=== PATIENT | male | born 1965 | race Caucasian/White ===

== ENCOUNTER 2017-07-12 19:31 | Emergency (ER) | payer OTHER ==
[~2017-07-12] VITALS: Ht 193 cm; Wt 116.4 kg
[2017-07-12 20:50] LABS: BASOPHIL (%) 0.2 % (0-1); EOSINOPHIL (%) 0.7 % (0-5); EOSINOPHIL COUNT 0.1 K/uL (0-0.3); HEMATOCRIT 38.1 % (38.0-50.0); HEMOGLOBIN 13.2 G/DL (12.5-16.6); IMMATURE GRANULOCYTE (%) 0.9 % (0.0-0.7); LYMPHOCYTE (%) 10.4 % (15-42); LYMPHOCYTE COUNT 1.4 K/uL (1.0-2.8); MCH 30.5 PG (29.0-34.0); MCHC 34.6 G/DL (30.0-36.0); MONOCYTE (%) 8.9 % (3-12); MONOCYTE COUNT 1.2 K/uL (0-0.8); NEUTROPHIL (%) 78.9 % (45-76); NEUTROPHIL COUNT 10.2 K/uL (1.8-6.4); PLATELET COUNT 294 K/uL (156-360); RBC DIS.WIDTH-CV 12.2 % (11.8-14.6); RBC DIS.WIDTH-SD 39.4 % (39-53); RED BLOOD COUNT 4.33 M/uL (4.00-5.50)
[2017-07-12 20:57] LABS: ALBUMIN 3.7 g/dL (3.2-4.8)
[2017-07-12 20:58] LABS: CHLORIDE 102 mEq/L (99-109); POTASSIUM 3.9 mEq/L (3.7-5.4); SODIUM 137 mEq/L (136-147)
[2017-07-12 21:00] LABS: GLUCOSE 148 mg/dL (70-99); TOTAL PROTEIN 7.7 g/dL (6.4-8.3)
[2017-07-12 21:02] LABS: TOTAL BILIRUBIN 0.9 mg/dL (0.0-1.0)
[2017-07-12 21:03] LABS: ALKALINE PHOSPHATASE 101 IU/L (3-129)
[2017-07-12 21:05] LABS: AST (GOT) 27 IU/L (2-34); GFR ESTIMATE (CALCULATED) > 59 mL/min/ (58.99-99999); UREA NITROGEN (BUN) 15 mg/dL (9-23)
[2017-07-12 21:07] LABS: ALT (GPT) 33 IU/L (3-49)
[2017-07-13 00:30] VITALS: BP 116/75
== END 2017-07-13 01:14 | disposition short-term general hospital (02) ==
LOC: EDBD 19:31 → EME 19:31
PROVIDERS: Emergency Medicine
DX: L03.116 Cellulitis of left lower limb (principal); Z16.29 Resistance to other single specified antibiotic; R60.0 Localized edema; B19.20 Unspecified viral hepatitis C without hepatic coma; K21.9 Gastro-esophageal reflux disease without esophagitis; Z87.891 Personal history of nicotine dependence
CPT/HCPCS: 80053; 85025; 87040; 93971; 99281; 99285; J1885; J3370; J7040